=== PATIENT | female | born 2000 | race Caucasian/White ===

== ENCOUNTER → 2024-01-15 10:06 | Outpatient (REF) | payer BC, SELFPAY ==
[2024-01-15 11:28] LABS: % Basophils 0.8 % (0-2); % Eosinophils 2.8 % (0-6); % Immature Granulocytes 0.3 % (0-0.5); % Lymphocytes 18.7 % (20.5-51.1); % Monocytes 7.8 % (1.7-9.3); % Neutrophils 69.6 % (42.2-75.2); Absolute Basophils 0.1 10^3/uL (0-0.2); Absolute Eosinophils 0.2 10^3/uL (0-0.7); Absolute Lymphocytes 1.2 10^3/uL (1.2-3.4); Absolute Monocytes 0.5 10^3/uL (0.1-0.6); Absolute Neutrophils 4.4 10^3/uL (1.4-6.5); Hematocrit 35.7 % (37.0-47.0); Hemoglobin 11.6 g/dL (12.0-16.0); Mean Corp Hgb Conc. 32.5 g/dL (33.0-37.0); Mean Corpuscular Volume 79.9 fL (81.0-99.0); Mean Platelet Volume 9.9 fL (7.4-10.4); Nucleated Red Blood Cells % 0 %; Platelet Count 233 10^3/uL (130-400); Red Blood Cell Count 4.47 10^6/uL (4.20-5.40); Red Cell Dist. Width 14.4 % (11.5-14.5); White Blood Cell Count 6.4 10^3/uL (4.8-10.8)
[2024-01-15 13:39] LABS: ALT (SGPT) 41 U/L (0-35); AST (SGOT) 41 U/L (14-36); Albumin 4.2 g/dl (3.5-5.0); Alkaline Phosphatase 63 U/L (38-126); Blood Urea Nitrogen 12 mg/dl (7-17); Calcium 9.6 mg/dl (8.4-10.2); Carbon Dioxide 25 mmol/L (22-30); Chloride 101 mmol/L (98-107); Glucose 85 mg/dl (70-99); HDL Cholesterol 93 mg/dl; Iron 54 ug/dl (37-170); LDL Cholesterol, Calculated 69 mg/dl; Potassium 4.6 mmol/L (3.5-5.1); Sodium 135 mmol/L (135-145); Total Bilirubin 0.5 mg/dl (0.2-1.3); Total Cholesterol 181 mg/dl (50-199); Total Protein 7.1 g/dl (6.3-8.2); Triglyceride 98 mg/dl (10-149); Very Low Density Lipoprotein 19 mg/dl (0-30); eGFR > 60.00
[2024-01-15 13:49] LABS: Percent Saturation 12 % (20-50); Total Iron Binding Capacity 449 ug/dl (265-497)
[2024-01-15 13:57] LABS: TSH Reflex To Free T4 2.44 uIU/ml (0.47-4.68)
== END ==
LOC: REG 10:06
PROVIDERS: ATTENDING PHYSICIAN Family Medicine
DX: Z00.00 Encounter for general adult medical examination without abnormal findings (principal)
CPT/HCPCS: 36415; 80053; 80061; 82728; 83540; 83550; 84443; 85025

== ENCOUNTER → 2024-03-07 11:19 | Outpatient (REF) | payer BC, SELFPAY | LOC: CPAP 11:19 | PROVIDERS: ATTENDING PHYSICIAN Nurse Practitioner Family | DX: Z12.4 Encounter for screening for malignant neoplasm of cervix (principal); Z01.419 Encounter for gynecological examination (general) (routine) without abnormal findings | CPT/HCPCS: G0123 ==

== ENCOUNTER → 2024-04-12 09:17 | Outpatient (REF) | payer BC, SELFPAY ==
[2024-04-12 10:56] LABS: % Basophils 0.6 % (0-2); % Immature Granulocytes 0.5 % (0-0.5); % Lymphocytes 16.9 % (20.5-51.1); % Monocytes 6.2 % (1.7-9.3); % Neutrophils 74.8 % (42.2-75.2); Absolute Basophils 0.1 10^3/uL (0-0.2); Absolute Eosinophils 0.1 10^3/uL (0-0.7); Absolute Immature Granulocytes 0.1 10^3/uL (0-0.05); Absolute Lymphocytes 1.7 10^3/uL (1.2-3.4); Absolute Monocytes 0.6 10^3/uL (0.1-0.6); Absolute Neutrophils 7.4 10^3/uL (1.4-6.5); Hematocrit 39.3 % (37.0-47.0); Hemoglobin 12.9 g/dL (12.0-16.0); Mean Corp Hgb Conc. 32.8 g/dL (33.0-37.0); Mean Corpuscular Hgb 29.7 pg (27.0-31.0); Mean Corpuscular Volume 90.6 fL (81.0-99.0); Mean Platelet Volume 9.3 fL (7.4-10.4); Nucleated Red Blood Cells % 0 %; Platelet Count 192 10^3/uL (130-400); Red Blood Cell Count 4.34 10^6/uL (4.20-5.40); Red Cell Dist. Width 14.6 % (11.5-14.5); White Blood Cell Count 9.9 10^3/uL (4.8-10.8)
[2024-04-12 11:31] LABS: ALT (SGPT) 20 U/L (0-35); AST (SGOT) 22 U/L (14-36); Albumin 4.5 g/dl (3.5-5.0); Alkaline Phosphatase 58 U/L (38-126); Blood Urea Nitrogen 16 mg/dl (7-17); Calcium 10.1 mg/dl (8.4-10.2); Carbon Dioxide 24 mmol/L (22-30); Chloride 102 mmol/L (98-107); Glucose 88 mg/dl (70-99); Iron 91 ug/dl (37-170); Potassium 4.6 mmol/L (3.5-5.1); Sodium 136 mmol/L (135-145); Total Bilirubin 0.6 mg/dl (0.2-1.3); eGFR > 60.00
[2024-04-12 11:41] LABS: Percent Saturation 23 % (20-50); Total Iron Binding Capacity 393 ug/dl (265-497)
[2024-04-12 12:03] LABS: Ferritin 12.4 ng/ml (6.24-137)
== END ==
LOC: REG 09:17
PROVIDERS: ATTENDING PHYSICIAN Family Medicine
DX: D50.9 Iron deficiency anemia, unspecified (principal); R79.89 Other specified abnormal findings of blood chemistry
CPT/HCPCS: 36415; 80053; 82728; 83540; 83550; 85025

== ENCOUNTER 2024-08-05 09:47 | Inpatient (IN) | payer BC, SELFPAY ==
[2024-08-02 19:30] VITALS: BP 154/96
--- NOTE | 2024-08-02 22:03 | ED.GENMED ---
History of Present Illness
<DO Ambreen Ferreira Last Filed: 08/03/24 15:38>
General
Chief Complaint: Back Pain
Source: patient
Time Seen by Provider: 08/02/24 21:41
History of Present Illness
History of Present Illness:
23-year-old female presents to the emergency room with severe low back pain. Patient states that she began having back pain approximately 6 months ago. No clear injury. She was seen by orthopedics and went through a course of physical therapy.
Her pain did improve. She was feeling somewhat better until 2 weeks ago when her pain began worsened. The pain exists in her low back. She has tingling that radiates down her leg. She has a numbness feeling on the side of her leg. Her movement
is limited by pain but not by weakness. She denies saddle anesthesia. She denies any bowel/bladder incontinence. She denies any fever or chills. She denies any IV drug use.
Phy Exam
<Shayan Correa DO - Last Filed: 08/03/24 15:38>
Physical Exam
Physical Exam:
General: Awake, Alert, Oriented X3. No acute distress.
Vitals: unremarkable
Head: Atraumatic
Eyes: Pupils equal, EOMI
Throat: Airway intact, no exudates
Neck: Trachea midline
Lungs: Clear and equal b/l
Heart: Regular rate, no murmurs
Abd: Soft, Nontender, No pulsatile mass
Back: No midline tenderness to palpation
Neuro: Muscle strength out of 5 bilaterally, patellar reflexes intact bilaterally, decrease left Achilles reflex
Skin: Warm, dry, no rash
Extremities: pulses equal b/l, no edema
Course
<DO Ambreen Ferreira Last Filed: 08/03/24 15:38>
Orders/Labs/Results
Orders:
Orders
08/02/24 21:54
Bladder Scan- Treatment ONCE
Ketorolac [Toradol] 30 mg IV NOW STA
08/02/24 22:01
Test Result ONCE
08/02/24 22:10
Basic Metabolic Panel Urgent
CRP [C-Reactive Protein] Urgent
Complete Blood Count/With Diff Urgent
HCG, Serum Qualitative Screen Urgent
08/02/24 22:33
MR Lumbar Without Contrast Stat
Comment:
Reason For Exam: back pain, urinary retention, left leg paresthesia
OK for patient to be off Cardiac Monitoring for MRI: Yes
Recent pill cam endoscopy?: No
08/03/24 01:35
Dexamethasone Sod Phosphate [Decadron] 10 mg IV NOW STA
Morphine Sulfate 4 mg IV NOW STA
08/03/24 03:15
Admit/Transfer Patient As Directed
Co-Sign Provider:
Level of Care: Observation services
Assign to:: Medical/Surgical
Physician / Group: Nilay
Diagnosis: Lumbar Radiculopathy
Code Status As Directed
Resuscitation Status: Full Code
PRN Pain Medication Management As Directed
May give lesser potent ordered pain med per pt: Yes
preference::
Protocol:: Medication orders for pain may be administered in a
manner that supports deferring to patient preference
when the pt is:
- Requesting an ordered lesser potent pain medication.
Least to most potent pain medications are defined
as: acetaminophen < NSAID < tramadol < opioids
(morphine, oxycodone, hydromorphone).
- Requesting a lesser dose of the same medication IF
ORDERED.
- Requesting a less intrusive route of administration
if both routes are prescribed by the provider (PO <
IV).
08/03/24 Breakfast
Regular
At Your Request: Full Participation
08/03/24 06:09
Acetaminophen [Tylenol] 650 mg PO Q4HPRN PRN
Dexamethasone Sod Phosphate [Decadron] 4 mg IV Q6H
HYDROmorphone [Dilaudid] 0.5 mg IV Q4HPRN PRN
08/03/24 06:09
Neurosurgery Consult Routine
Consulting Provider: Radha June
Was physician already notified: Yes
Reason for Consult: Lumbar Radiculopathy, Urinary retention
Activity As Directed
Activity Level: Ambulate
Bladder Scan As Directed
Follow Bladder Retention/Intermittent Cath Algorithm?: Yes
PRN if no void in __ hours: 6
Frequency: Per Retention Algorithm
If Bladder Scan Result >: 400
then:: Straight cath
I/O [Intake/ Output] As Directed
Frequency: Per unit guidelines
Pneumatic Compression Sleeves As Directed
Type: Knee high
Straight Cath As Directed
Frequency: Per Retention Algorithm
Additional Instructions: straight cath as needed per acute urinary retention algorithm for 24 hrs
Additional Instructions: for bladder scan greater than 400 mL
Vital Signs As Directed
Frequency: Per unit guidelines
PT Consult [Pt Eval And Treat] Routine
Activity Level: Ambulate
With Assistance
DX Deep Vein Thrombosis Video Routine
08/03/24 08:00
Lidocaine [Lidocaine 4% Patch] 1 patch TOPICAL DAILY
Apply Lidocaine patch(s) to:: L buttocks
08/04/24 06:00
Basic Metabolic Panel IN AM
Complete Blood Count/No Diff IN AM
Abnormal Lab Results
08/02/24
22:10
Absolute Neuts (auto) 7.8 H 10^3/uL
(1.4-6.5)
Absolute Lymphs (auto) 0.7 L 10^3/uL
(1.2-3.4)
Neutrophils % 86.3 H %
(42.2-75.2)
Lymphocytes % 8.2 L %
(20.5-51.1)
Carbon Dioxide 20 L mmol/L
(22-30)
Glucose 112 H mg/dl
(70-99)
08/02/24 22:10
08/02/24 22:10
Vital Signs
Initial and Last Documented VS:
Initial Vital Signs
Temp Pulse Resp BP Pulse Ox
98.4 F 94 16 154/96 96
08/02/24 19:30 08/02/24 19:30 08/02/24 19:30 08/02/24 19:30 08/02/24 19:30
Last Documented Vital Signs
Temp Pulse Resp BP Pulse Ox
98.4 F 74 18 116/70 98
08/02/24 19:30 08/03/24 11:00 08/03/24 11:00 08/03/24 11:00 08/03/24 11:00
<Judy Goldsmith DO - Last Filed: 08/03/24 06:44>
Orders/Labs/Results
Orders:
Orders
08/02/24 21:54
Bladder Scan- Treatment ONCE
Ketorolac [Toradol] 30 mg IV NOW STA
08/02/24 22:01
Test Result ONCE
08/02/24 22:10
Basic Metabolic Panel Urgent
CRP [C-Reactive Protein] Urgent
Complete Blood Count/With Diff Urgent
HCG, Serum Qualitative Screen Urgent
08/02/24 22:33
MR Lumbar Without Contrast Stat
Comment:
Reason For Exam: back pain, urinary retention, left leg paresthesia
OK for patient to be off Cardiac Monitoring for MRI: Yes
Recent pill cam endoscopy?: No
08/03/24 01:35
Dexamethasone Sod Phosphate [Decadron] 10 mg IV NOW STA
Morphine Sulfate 4 mg IV NOW STA
08/03/24 03:15
Admit/Transfer Patient As Directed
Co-Sign Provider:
Level of Care: Observation services
Assign to:: Medical/Surgical
Physician / Group: Nilay
Diagnosis: Lumbar Radiculopathy
Code Status As Directed
Resuscitation Status: Full Code
PRN Pain Medication Management As Directed
May give lesser potent ordered pain med per pt: Yes
preference::
Protocol:: Medication orders for pain may be administered in a
manner that supports deferring to patient preference
when the pt is:
- Requesting an ordered lesser potent pain medication.
Least to most potent pain medications are defined
as: acetaminophen < NSAID < tramadol < opioids
(morphine, oxycodone, hydromorphone).
- Requesting a lesser dose of the same medication IF
ORDERED.
- Requesting a less intrusive route of administration
if both routes are prescribed by the provider (PO <
IV).
08/03/24 Breakfast
Regular
At Your Request: Full Participation
08/03/24 06:09
Acetaminophen [Tylenol] 650 mg PO Q4HPRN PRN
Dexamethasone Sod Phosphate [Decadron] 4 mg IV Q6H
HYDROmorphone [Dilaudid] 0.5 mg IV Q4HPRN PRN
08/03/24 06:09
Neurosurgery Consult Routine
Consulting Provider: Radha June
Was physician already notified: Yes
Reason for Consult: Lumbar Radiculopathy, Urinary retention
Activity As Directed
Activity Level: Ambulate
Bladder Scan As Directed
Follow Bladder Retention/Intermittent Cath Algorithm?: Yes
PRN if no void in __ hours: 6
Frequency: Per Retention Algorithm
If Bladder Scan Result >: 400
then:: Straight cath
I/O [Intake/ Output] As Directed
Frequency: Per unit guidelines
Pneumatic Compression Sleeves As Directed
Type: Knee high
Straight Cath As Directed
Frequency: Per Retention Algorithm
Additional Instructions: straight cath as needed per acute urinary retention algorithm for 24 hrs
Additional Instructions: for bladder scan greater than 400 mL
Vital Signs As Directed
Frequency: Per unit guidelines
PT Consult [Pt Eval And Treat] Routine
Activity Level: Ambulate
With Assistance
DX Deep Vein Thrombosis Video Routine
08/03/24 08:00
Lidocaine [Lidocaine 4% Patch] 1 patch TOPICAL DAILY
Apply Lidocaine patch(s) to:: L buttocks
08/04/24 06:00
Basic Metabolic Panel IN AM
Complete Blood Count/No Diff IN AM
Abnormal Lab Results
08/02/24
22:10
Absolute Neuts (auto) 7.8 H 10^3/uL
(1.4-6.5)
Absolute Lymphs (auto) 0.7 L 10^3/uL
(1.2-3.4)
Neutrophils % 86.3 H %
(42.2-75.2)
Lymphocytes % 8.2 L %
(20.5-51.1)
Carbon Dioxide 20 L mmol/L
(22-30)
Glucose 112 H mg/dl
(70-99)
08/02/24 22:10
08/02/24 22:10
Vital Signs
Initial and Last Documented VS:
Initial Vital Signs
Temp Pulse Resp BP Pulse Ox
98.4 F 94 16 154/96 96
08/02/24 19:30 08/02/24 19:30 08/02/24 19:30 08/02/24 19:30 08/02/24 19:30
Last Documented Vital Signs
Temp Pulse Resp BP Pulse Ox
98.4 F 74 18 116/70 98
08/02/24 19:30 08/03/24 11:00 08/03/24 11:00 08/03/24 11:00 08/03/24 11:00
avtar;Shayan Correa, DO - Last Filed: 08/03/24 15:38>
MDM/Problems Addressed
Differential Diagnosis Includes:
Cauda equina, lumbar radiculopathy, muscle spasm
MDM/Problems Addressed:
1036pm: Patient presents with significant low back pain which does radiate to the left leg with paresthesias in the left leg. She has decreased Achilles reflex. Bladder scan was performed which shows quite significant urinary retention of 750 cc.
At this point I communicated with radiology to facilitate a stat MRI. I also communicated with Dr. June who is on-call for neurosurgery just to give her a heads up about the potential of the case.
<Judy Goldsmith DO - Last Filed: 08/03/24 06:44>
*Critical Care Note
Total Time (30-74mins, 75-104mins- exclusive of procedures): Not Applicable
<Judy Goldsmith DO - Last Filed: 08/03/24 06:44>
Update Note
Update Note:
Attending Signout Note
23:45 -received signout from prior physician, 23-year-old female presenting for worsening back pain. Notes lower back pain with paresthesias running down the left leg. In the emergency department, noted to have intact strength to bilateral lower
extremities, slight diminished sensation to the left inner thigh. Patient was bladder scan, significant retention, was unable to urinate so concern for acute urinary retention. Patient had a catheter placed, output of about 1000 cc. For this
reason, concern for cauda equina. Patient is currently in MRI.
01:30 -MRI shows prominent left subarticular disc protrusion at L5-S1 resulting in lateral recess stenosis abutting the nerve roots and likely causing patient's radiculopathy. Discussed with neurosurgery, who was already aware of patient. On my
repeat examination, cranial sensation is overall intact, does note some slight diminished sensation on the left side. Rectal tone is overall intact, however seems slightly diminished on my exam. Patient otherwise continues to have intact strength
and distal sensation. Per neurosurgery, not meeting criteria for acute cauda equina or emergent OR, advising admission for IV steroids and pain control with Leary trial due to acute urinary retention she notes if patient is failing, we will then
operate. Morphine administered for pain.
-Judy Goldsmith DO
ED Attending Note
<Shayan Correa DO - Last Filed: 08/03/24 15:38>
-
Portions of this chart may have been created with voice recognition software.� Occasional wrong word or��sound alike� substitutions may have occurred due to the inherent limitations of voice recognition software.
Discharge Plan
Departure
Patient Disposition: Admit
Date of Disposition: 08/03/24
Time of Disposition: 01:42
Presentation/result/management discussed w/ accepting MD/DO: Hospitalist
Patient with high blood pressure during this ER visit?: No
Condition: Fair
Discharge Problem:
Herniation of intervertebral disc between L5 and S1, Acute urinary retention
Interventions
Interventions:
*Risk Screen - Suicide Last Done: 08/02/24 19:26
*General Assessment Last Done: 08/02/24 21:37
*Neglect/Abuse Screening Last Done: 08/03/24 00:32
ED- Fall Risk Assessment Last Done: 08/02/24 21:37
*ED COVID-19 Vaccine History Last Done: 08/03/24 00:33
*Nursing Disposition Last Done: 08/03/24 15:13
ED-Musculoskeletal Assessment Last Done: 08/02/24 21:37
Discharge Date and Time
Discharge Date/Time: 08/03/24 15:14
[2024-08-02] MEDS: TORADOL 30 MG IV (22:10)
[2024-08-02 22:23] VITALS: BP 152/92
[2024-08-02 22:24] LABS: % Basophils 0.3 % (0-2); % Immature Granulocytes 0.4 % (0-0.5); % Lymphocytes 8.2 % (20.5-51.1); % Monocytes 4.8 % (1.7-9.3); % Neutrophils 86.3 % (42.2-75.2); Absolute Lymphocytes 0.7 10^3/uL (1.2-3.4); Absolute Monocytes 0.4 10^3/uL (0.1-0.6); Absolute Neutrophils 7.8 10^3/uL (1.4-6.5); Hematocrit 37.4 % (37.0-47.0); Hemoglobin 13.6 g/dL (12.0-16.0); Mean Corp Hgb Conc. 36.4 g/dL (33.0-37.0); Mean Corpuscular Hgb 30.8 pg (27.0-31.0); Mean Corpuscular Volume 84.8 fL (81.0-99.0); Mean Platelet Volume 9.3 fL (7.4-10.4); Nucleated Red Blood Cells % 0 %; Platelet Count 206 10^3/uL (130-400); Red Blood Cell Count 4.41 10^6/uL (4.20-5.40); Red Cell Dist. Width 11.8 % (11.5-14.5)
[2024-08-02 22:52] VITALS: BMI 32.3
[2024-08-02 23:04] LABS: HCG, Serum Qualitative Screen Negative
[2024-08-02 23:06] LABS: Blood Urea Nitrogen 9 mg/dl (7-17); Carbon Dioxide 20 mmol/L (22-30); Chloride 102 mmol/L (98-107); Estimated Creatinine Clearance > 125 ml/min; Glucose 112 mg/dl (70-99); Potassium 4.3 mmol/L (3.5-5.1); Sodium 137 mmol/L (135-145); eGFR > 60.00
[2024-08-03 00:30] VITALS: BP 114/88
[2024-08-03] MEDS: DECADRON 10 MG IV (01:41)
[2024-08-03] MEDS: MORPHINE SULFATE 4 MG IV (01:43)
--- NOTE | 2024-08-03 03:17 | HPS.HSE ---
Family Physician
-
Family Physician: Lilliana Howell
Chief Complaint
-
Back Pain / LLE Numbness
History of Present Illness
Patient is a 23y F with no significant PMH who presents to ED complaining of back pain and LLE numbness. Patient states that she initially developed low back pain in February of this year. No obvious inciting incident, injury or trauma. She had
x-rays which were unremarkable and was treated for suspected SI joint dysfunction with pain control and PT. Her symptoms did improve, but did not fully resolve. About 2 weeks ago patient noted a recurrence of her prior pain. She again noted no
specific injury or incident. Her pain was in the L buttock area and describes as a burning discomfort. In addition, she developed new numbness / tingling sensation in the LLE in the lateral thigh and wrapping around the knee to the heel.
She noted significant increase in her symptoms over the past 2 days. She had increased pain with standing / walking.
In the ED this evening, patient was bladder scanned for 800cc. She was unable to void. She was straight cathed for return of 1000cc of urine.
Medical History
Past Medical History
Past Medical History: Reports None
Past Surgical History: Reports None
Social History
Tobacco: Non-smoker
Alcohol: None
Drug: None
Family History
Family History: Not pertinent
Allergies / Home Medications
Allergies reflects when Allergies were last updated in [employer].
Home Medications with original date entered in [employer]
Allergy/Medication List:
OCP
Domi OTC
Review of Systems
-
History Source: Patient
A 12 point ROS was completed and negative except as noted: Yes
Constitutional: Denies Fever, Fatigue or Chills
Respiratory: Denies Cough or Trouble Breathing
Cardiac: Denies Chest Pain or Palpitations
Abdomen/GI: Denies Abdominal Pain, Nausea, Vomiting or Diarrhea
: Reports Difficulty Voiding; Denies Dysuria, Frequency or Flank Pain
Musculoskeletal: Reports Other (L low back / buttock pain. LLE numbness and tingling.); Denies Joint Pain or Edema
Neurological: Reports Numbness; Denies Dizzy or Headache
Psych: Denies Depression or Anxiety
Physical Exam
Vital Signs
Vital Signs
Temp Pulse Resp BP Pulse Ox
98.4 F 87 16 114/88 94
08/02/24 19:30 08/03/24 00:30 08/03/24 00:30 08/03/24 00:30 08/03/24 00:30
Physical Exam
General: Other (23y F in no acute distress.)
HEENT: Moist mucous membranes and PERRLA
Respiratory: Clear; No Wheezes, Rales or Rhonchi
Cardiac: S1/S2 and Regular Rhythm; No Murmur
GI: Soft, Non Tender, Non Distended and Normal Bowel Sounds
Musculoskeletal: No Clubbing, No Cyanosis, No Edema and Other (Pos SLR bilaterally with reported pain in the L low back / buttock with raising either leg. Tenderness over L buttock / piriformis area.)
Neuro: No Motor Deficits
Laboratory Results
-
08/02/24 22:10
08/02/24 22:10
Impression/Plan
-
A/P: Patient is a 23y F with no significant PMH who presents to ED complaining of low back pain and LLE numbness and tingling for about 2 weeks.
Lumbar Radiculopathy
L5-S1 HNP
- Observe overnight for further evaluation and treatment.
- IV steroids recommended by Neurosurgery.
- Follow for clinical improvement.
- PT evaluation.
- Symptom distribution consistent with L5-S1 disc / nerve impingement seen on MRI.
- +/- surgical intervention if no improvement in symptoms with conservative management.
Urinary Retention
- ? etiology. No evidence of cauda equina syndrome, etc seen on MRI.
- Bladder scan protocol and straight cath if needed.
- May require Leary placement if continues to exhibit urinary retention.
DVT Prophylaxis: SCDs
Code Status: Full
[2024-08-03] MEDS: DECADRON 4 MG IV ×3 (06:25→19:54)
[2024-08-03 06:32] VITALS: BP 118/73
--- NOTE | 2024-08-03 06:35 | EDRN ---
Pt attempted to void after bladder scan at this time,scan showed 230mls of urine,pt unsuccessful at this time.
[2024-08-03] MEDS: LIDOCAINE 4% PATCH 1 PATCH TOPICAL (08:22)
[2024-08-03] MEDS: DILAUDID 0.5 MG IV ×3 (08:23→19:59)
[2024-08-03 08:31] VITALS: BP 118/73
[2024-08-03 11:00] VITALS: BP 116/70
--- NOTE | 2024-08-03 14:50 | W.PN.UPDATE ---
Update Note
Progress Note Update
Patient seen and examined after postmidnight admission. No new complaints since admission. Patient mentions that she was bladder scanned for 1000cc but since then has urinated twice. She states she has to 'force it' to urinate. VSS. Pt seen and
examined with nurse Demetra Flores present at bedside. NAD, awake and alert, RRR, normal S1/S2, CTAB, CN2-12 intact. Imaging reviewed, MRI L-spine with Large left posterior disc herniation at L5-S1 with severe narrowing of the left lateral recess
and impingement upon the descending left S1 nerve root. Cont Decadron, Tylenol/Dilaudid PRN. Awaiting official neurosurgical evaluation.
[2024-08-03 15:45] VITALS: BMI 33.3
[2024-08-03 16:33] VITALS: BP 135/85
--- NOTE | 2024-08-03 16:33 | CON.NS ---
Consultation
-
Date/Time Consultation Performed: 16:33; 08/03/2024
Performing Provider: Shaylee
Chief Complaint
History of Present Illness
This is a 23-year-old female, who presents with subacute to acute onset of left lower extremity radicular pain, numbness, and inability to void yesterday. She reports that in February 2024, she injured her back, and was diagnosed with possible left SI
joint dysfunction. She underwent steroid therapy, and physical therapy with some improvement of her symptoms. Approximately 2 weeks ago, she had worsening of symptoms, and 2 days prior, she had severe exacerbation of symptoms, prompting her to
present to the emergency room. She reports that her pain is primarily along her left hip/buttock region, with associated numbness in left lower extremity. She denies any perineal numbness. She denies any bowel incontinence. Yesterday, she had
significant difficulty with urination, and does report that she had 1 dose of oxycodone at approximately noon time yesterday. In the emergency room yesterday, she had bladder scan with 800-1000 mL of urine, and was straight cathed. Since then, she
has been able to void, and PVR has been 5 mL. She has voided twice today. She also had a bowel movement today.
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
Review of Systems
-
10 point review of systems was performed which includes constitutional, ENT, cardiovascular, respiratory, GI, , neurologic, musculoskeletal, hematologic, endocrinologic, and was negative, except for stated in HPI.
Medication and Allergies
Allergies
Allergies
Allergy/AdvReac Type Severity Reaction Status Date / Time
No Known Allergies Allergy Unverified 08/02/24 19:33
Physical Exam
-
Exam:
Awake, alert, no apparent distress.
Cranial 2-12 are grossly intact.
Motor: 5/5 strength in upper extremities in all muscle groups.
5/5 strength bilateral lower extremities in all muscle groups.
Diminished sensation to light touch in left lower extremity diffusely.
Head is normocephalic atraumatic
Neck is supple
Breathing nonlabored
Cardiac: Regular rate and rhythm
Abdomen is soft
Extremities are warm
MRI of lumbar spine:: There is a left paracentral moderate to large L5-S1 disc herniation with rostral extrusion. There is significant impingement of the left lateral recess noted. However, there is patency of the central canal noted without any
obvious evidence of obliteration of CSF signal at this level.
Problems
-
Problem Status Onset Code
Acute urinary retention R33.8
Herniation of intervertebral disc between L5 and S1 M51.27
Assessment / Plan
-
This is a 23-year-old female that presents with left lower extremity radiculopathy, and 1 episode of urinary retention, in the setting of taking oxycodone. I thoroughly reviewed the imaging results, her examination, with her, and her mother. At
the present time, cauda equina syndrome has been ruled out, given that she has been able to void since presentation, she has no evidence of perineal numbness, and she has symmetric and good strength bilaterally in the lower extremities. Given this,
she does not warrant/need emergent surgical intervention.
That being said, I discussed with her management options for left L5-S1 disc herniation with radiculopathy which includes conservative management with steroid treatment/anti-inflammatories, physical therapy, epidural steroid injection, and
ultimately surgery.
She expresses that she would like to trial an epidural steroid injection, before committing to surgery.
Discussed with hospital medicine. Will contact IR to see if she can obtain SHAHEEN prior to discharge.
We will follow-up with the patient in the office in approximately 2 weeks. If her symptoms change or worsen between now and follow-up, she is advised to call the office/come to the emergency room. She expresses understanding of this and is in
agreement with plan.
--- NOTE | 2024-08-03 19:08 | PTCARENOTE ---
Received patient around 1545 via stretcher from ER in stable condition. Mother at bedside. Patient oriented to room. Patient has equal strength in all extremeties, but does c/o numbmness on left lower extremity. Patient did not have the urge to void
but did sit on the toilet around 1800. Voided 300 of cloudy yellow urine. PVR 5 ml.
[2024-08-03 23:26] VITALS: BP 126/79
[2024-08-04] MEDS: DILAUDID 0.5 MG IV ×4 (00:15→23:19)
[2024-08-04] MEDS: DECADRON 4 MG IV ×5 (00:16→23:21)
[2024-08-04 05:28] LABS: Hematocrit 38.2 % (37.0-47.0); Hemoglobin 13.3 g/dL (12.0-16.0); Mean Corp Hgb Conc. 34.8 g/dL (33.0-37.0); Mean Corpuscular Hgb 30.6 pg (27.0-31.0); Mean Platelet Volume 9.1 fL (7.4-10.4); Platelet Count 207 10^3/uL (130-400); Red Blood Cell Count 4.34 10^6/uL (4.20-5.40); White Blood Cell Count 11.4 10^3/uL (4.8-10.8)
[2024-08-04 05:51] LABS: Blood Urea Nitrogen 16 mg/dl (7-17); Calcium 10.2 mg/dl (8.4-10.2); Carbon Dioxide 24 mmol/L (22-30); Chloride 102 mmol/L (98-107); Estimated Creatinine Clearance > 125 ml/min; Glucose 124 mg/dl (70-99); Potassium 4.5 mmol/L (3.5-5.1); Sodium 140 mmol/L (135-145); eGFR > 60.00
[2024-08-04 07:58] VITALS: BP 132/78
[2024-08-04] MEDS: LIDOCAINE 4% PATCH 1 PATCH TOPICAL (08:39)
--- NOTE | 2024-08-04 09:40 | W.PN.HOSP.TC ---
Today's Communication/Plan
-
SHAHEEN tomorrow
Assessment / Plan
Assessment / Plan
Gen: NAD, AAOx3.
Eyes: EOMI, PERRLA, no scleral icterus.
Neck: supple.
CV: RRR, +S1/S2, no m/r/g.
Resp: CTAB, no rales, wheezes, or rhonchi.
Abd: +BS, soft, NT, ND
Skin: No rashes. LLE 5/5 strength, no sensory deficits
Neuro: CN 2-12 intact, non-focal.
Psych: Normal mood and affect.
MRI L-spine: Large left posterior disc herniation at L5-S1 with severe narrowing of the left lateral recess and impingement upon the descending left S1 nerve root.
LLE radiculopathy due to L5-S1 disc herniation:
-see my neurosurgery, discussed with Dr. June on 08/03/24
-cont Decadron/Lidocain, cont Tylenol/Dilaudid PRN
-start neurontin 100mg TID
-case discussed with Dr. Orona on 08/03/24, for SHAHEEN on 08/05/24
FULL/SCDs
Anticipated Discharge: 24 - 48 hours
Subjective/Interval History
-
Date of Service: August 04, 2024
No new complaints.
Objective Data
-
Labs:
Laboratory Results
08/04/24
05:00
WBC 11.4 H
Hgb 13.3
Hct 38.2
Plt Count 207
Sodium 140
Potassium 4.5
Chloride 102
Carbon Dioxide 24
BUN 16
Creatinine 0.8
Glucose 124 H
Calcium 10.2
Vital Signs:
Vital Signs
Temp Pulse Resp BP Pulse Ox
97.9 F 66 16 132/78 96
08/04/24 07:58 08/04/24 07:58 08/04/24 07:58 08/04/24 07:58 08/04/24 07:58
I&O
08/03/24 08/04/24 08/05/24
06:59 06:59 06:59
Intake Total 1160 / 1160
Output Total 600 / 600
Balance 560 / 560
[2024-08-04] MEDS: NEURONTIN 100 MG PO ×3 (10:22→21:26)
--- NOTE | 2024-08-04 12:18 | CM ---
Met with pt and her parents at bedside
Pt reports she lives with her parents in a 2 story home; 1 step to enter, 13 steps to 2nd fl
Independent, active at baseline - working FT, drives
DME - none
SNF/HH - no past hx
Has ride home at discharge
PCP - Lilliana Howell
Pharm - [facility]
Discussed OBS status - given letter
Plan - anticipate home no needs when medically stable
[2024-08-04 15:42] VITALS: BP 112/76
[2024-08-04 23:26] VITALS: BP 122/77
[2024-08-05] MEDS: DECADRON 4 MG IV ×2 (05:57→11:50)
[2024-08-05] MEDS: DILAUDID 0.5 MG IV ×2 (06:27→12:51)
[2024-08-05 07:30] VITALS: BP 125/72
[2024-08-05 07:58] LABS: INR 1.06; PT 13.6 Sec (11.4-14.6)
[2024-08-05] MEDS: LIDOCAINE 4% PATCH 1 PATCH TOPICAL (08:19)
[2024-08-05] MEDS: NEURONTIN 100 MG PO ×2 (08:19→16:17)
--- NOTE | 2024-08-05 10:27 | CM ---
Addendum entered by Kimberli Ryan 08/05/24 16:12:
Received tt from Berenice TIAN that patient LOC changed to inpatient.
Original Note:
Met with patient at bedside.
Discuss CM role.
no needs anticipated.
PLAN: Discharge when stable, no needs
--- NOTE | 2024-08-05 12:26 | W.PN.HOSP.TC ---
Addendum entered and electronically signed by David Perez MD 08/06/24 16:03:
[id number]
Original Note:
Today's Communication/Plan
-
naproxen, tylenol
SHAHEEN today
lidocaine patch
can dc decadron - only has had two days
f/u neurosurg outpatient in 2 weeks
If symptoms change or worsen between now and follow-up, call the office of neurosurgery/come to the emergency room.
Assessment / Plan
Assessment / Plan
Gen: NAD, AAOx3.
Eyes: EOMI, PERRLA, no scleral icterus.
Neck: supple.
CV: RRR, +S1/S2, no m/r/g.
Resp: CTAB, no rales, wheezes, or rhonchi.
Abd: +BS, soft, NT, ND
Skin: No rashes. LLE 5/5 strength, no sensory deficits
Neuro: CN 2-12 intact, non-focal.
Psych: Normal mood and affect.
MRI L-spine: Large left posterior disc herniation at L5-S1 with severe narrowing of the left lateral recess and impingement upon the descending left S1 nerve root.
LLE radiculopathy due to L5-S1 disc herniation:
-see my neurosurgery, discussed with Dr. June on 08/03/24
-Lidocaine, cont Tylenol/naproxen
-Only has had two days of Decadron - can dc after SHAHEEN
- neurontin 100mg TID
- SHAHEEN on 08/05/24
-Follow-up with neurosurgery in 2 weeks;
-If symptoms change or worsen between now and follow-up, call the office of neurosurgery/come to the emergency room.
FULL/SCDs
More than 30 minutes spent in discharge including
Final examination of the patient
Summarizing hospital stay
Instructions for continuing care to all relevant caregivers
Preparation of discharge records, prescriptions, and referral forms
Total time spent (34 in minutes):
Anticipated Discharge: Today
Subjective/Interval History
-
Date of Service: August 05, 2024
Going for SHAHEEN today
Objective Data
-
Labs:
Laboratory Results
08/05/24
07:35
PT 13.6
INR 1.06
Vital Signs:
Vital Signs
Temp Pulse Resp BP Pulse Ox
97.7 F 60 18 125/72 95
08/05/24 07:30 08/05/24 07:30 08/05/24 07:30 08/05/24 07:30 08/05/24 07:30
I&O
08/04/24 08/05/24 08/06/24
06:59 06:59 06:59
Intake Total 1160 / 1160 1800 / 1800
Output Total 600 / 600 2100 / 2100
Balance 560 / 560 -300 / -300
Review of Systems
-
History Source: Patient
All other systems: Not reviewed unless documented
Data Reviewed
-
MRI: Image personally visualized and interpreted
Labs: Labs Reviewed by me
--- NOTE | 2024-08-05 12:29 | W.DS.TRANS ---
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
-
Discharge Instructions:
Discharge Diagnosis/Procedures LLE radiculopathy due to L5-S1 disc herniation
Blood Work cbc in 1 week with pcp
Instructions:
Stand-Alone Forms:
Changes to Home Medications: Yes
Discharge Medications:
DC Medications w/original date entered in [employer]
acetaminophen 325 mg tablet 650 mg (2 x 325 mg) PO Q4HPRN PRN Mild Pain / Temp > 101 #90 tabs 08/05/24
gabapentin 100 mg capsule 100 mg PO TID 30 days #90 caps 08/05/24
lidocaine 4 % topical patch 1 patch topical DAILY #30 ea 08/05/24
naproxen 500 mg tablet 500 mg PO BID PRN Pain #30 tabs 08/05/24
Home Medication Changes
acetaminophen 325 mg tablet 650 mg (2 x 325 mg) PO Q4HPRN PRN Mild Pain / Temp > 101 #90 tabs 08/05/24
gabapentin 100 mg capsule 100 mg PO TID 30 days #90 caps 08/05/24
lidocaine 4 % topical patch 1 patch topical DAILY #30 ea 08/05/24
naproxen 500 mg tablet 500 mg PO BID PRN Pain #30 tabs 08/05/24
Pending Results: No
[2024-08-05 14:14] VITALS: BP 127/89; BP_SYST 92
[2024-08-05 15:18] VITALS: BP 122/88
[2024-08-05 16:22] VITALS: BP 118/84
== END 2024-08-05 17:15 | disposition home or self-care (01) | DRG 552 ==
LOC: 2 SOUTH 09:47
PROVIDERS: Emergency Medicine; Radiology Vascular & Interventional Radiology; ADMITTING PHYSICIAN Hospitalist; ATTENDING PHYSICIAN Internal Medicine; CONSULT PHYSICIAN Neurological Surgery; EMERGENCY PHYSICIAN Student in an Organized Health Care Education/Training Program; FAMILY PHYSICIAN Family Medicine
PROC: 3E0R33Z Introduction of Anti-inflammatory into Spinal Canal, Percutaneous Approach (ICD-10-PCS; 2024-08-05)
DX: M54.16 Radiculopathy, lumbar region (principal); M51.27 Other intervertebral disc displacement, lumbosacral region
CPT/HCPCS: 51701; 51798; 62323; 72148; 80048; 84703; 85025; 85027; 85610; 86140; 96374; 96375; 99285

== ENCOUNTER 2024-09-16 06:06 | Day surgery (SDC) | payer BC, SELFPAY ==
[2024-09-10 14:00] VITALS: BMI 33.3
[2024-09-10 14:42] LABS: Hematocrit 39.3 % (37.0-47.0); Hemoglobin 13.5 g/dL (12.0-16.0); Mean Corp Hgb Conc. 34.4 g/dL (33.0-37.0); Mean Corpuscular Hgb 31.4 pg (27.0-31.0); Mean Corpuscular Volume 91.4 fL (81.0-99.0); Mean Platelet Volume 8.9 fL (7.4-10.4); Platelet Count 192 10^3/uL (130-400); Red Cell Dist. Width 12.5 % (11.5-14.5)
[2024-09-10 14:53] LABS: ALT (SGPT) 19 U/L (0-35); AST (SGOT) 19 U/L (14-36); Albumin 4.5 g/dl (3.5-5.0); Alkaline Phosphatase 55 U/L (38-126); Blood Urea Nitrogen 17 mg/dl (7-17); Calcium 10.2 mg/dl (8.4-10.2); Carbon Dioxide 25 mmol/L (22-30); Chloride 104 mmol/L (98-107); Estimated Creatinine Clearance > 125 ml/min; Glucose 97 mg/dl (70-99); Potassium 4.2 mmol/L (3.5-5.1); Sodium 142 mmol/L (135-145); Total Bilirubin 0.6 mg/dl (0.2-1.3); Total Protein 7.4 g/dl (6.3-8.2); eGFR > 60.00
[2024-09-11 11:43] VITALS: BMI 33.3
[2024-09-16] VITALS (7 sets, daily range): BP systolic 118–128; BP diastolic 67–85; BMI 33.3
[2024-09-16] MEDS: CELEBREX 200 MG PO (07:20)
[2024-09-16] MEDS: TYLENOL 1000 MG PO (07:20)
--- NOTE | 2024-09-16 10:05 | OR.RPT ---
Operative Report
Operative Report
Surgeon: Ray Easton MD
Deputy Building Guard: CODY Haney (Emilia Holt served as educational assistant for this procedure as no suitable resident or fellow was able to be identified)
Preoperative Diagnosis:
Lumbosacral herniated disc disease with radiculopathy
Postoperative Diagnosis:
Same
Procedure:
1. Microdiscectomy left sided, L5-S1
2. Use of microscope for microsurgical technique.
Anesth: GETA
EBL: 25 cc
Specimens: none
Complications: none
Indication or procedure: This patient is a 23 year old female with a longstanding history of radiating left lower extremity pain in the S1 nerve distribution. Her symptoms failed to respond to oral medications, physical therapy, activitiy
modification and epidural steroid injections. Imaging demonstrated right sided lateral stenosis at L5-S1 from facet arthropathy. Patient was offered surgical treatment consisting of microdiscectomy. Patient understood the risks benefits and
alternatives of the procedure and elected to undergo surgery after receving preoperative medical clearance.
Description of procedure: Patient was identified in the holding area. Surgical consent verified and patient marked. She was brought to the OR by anesthesia and surgical services. The patient was administered general anesthesia and intubated
without difficulty. Patient placed prone onto a Ramez table with bony prominences well padded and positioned appropriately. Preoperative fluoroscopy used to jama the L5-S1 interspace. The patient was then prepped and draped and the sterile
field established and surgical timeout performed with all members of the operating room team.
The skin was then incised with a knife, bovie down through the fascia overlying the L5-S1 interspace. Upsizing dilators were placed up to an 18 mm tube which was then secured to the table mount. A c arm image marked the correct level to be
operated on. The microscope was then brought in and used for the remainder of the procedure. The neural tiarra was used to create a laminotomy. A micro angled curette then used to tease the ligamentum flavum from the undersurface of the remaining
lamina The kerrison rongeur was then used to remove the ligamentum flavum and hypertrophied facet capsule of L5-S1. The traversing S1 nerve root was visualized and protected with a penfield 4 instrument and the L5-S1 disc exposed and bipolar
cautery used to create hemostasis. An angle nerve hook and ball tipped hook was used to remove one large and two smaller pieces of herniated nuclear material. The remainder of the disc laterally and medially was palpated with a ball tipped nerve
hook and no other herniatons noted.
The wound was then irrigated with 250 cc of normal saline, 40 mg of Depomedrol placed into the wound along with hemostatic agent. The wound was then closed in a sequential fashion with 0-0, 2-0 Vicryl and 3-0 monocryl for the skin. A dry dressing
applied. The patient was then positioned supine onto a hospital table, extubated without difficulty. Patient demonstrated movement of all 4 extremities and patient taken out of the operating room in a stable condition.
I attest that I was present for and performed all worthy and critical components of the procedure.
[2024-09-16] MEDS: DEMEROL 12.5 MG IV (10:44)
[2024-09-16] MEDS: ROXICODONE 5 MG PO (11:57)
== END 2024-09-16 12:30 | disposition home or self-care (01) ==
LOC: SDS 06:06
PROVIDERS: ATTENDING PHYSICIAN Orthopaedic Surgery; FAMILY PHYSICIAN Family Medicine
PROC: 0SB40ZZ Excision of Lumbosacral Disc, Open Approach (ICD-10-PCS; 2024-09-16)
DX: M51.17 Intervertebral disc disorders with radiculopathy, lumbosacral region (principal)
CPT/HCPCS: 63030; 36415; 72100; 76000; 80053; 85027; 87070; 87147

== ENCOUNTER 2024-10-29 06:31 | Outpatient (RCR) | payer BC, SELFPAY | END 2024-10-29 23:59 | disposition home or self-care (01) | LOC: RPT 06:31 | PROVIDERS: ATTENDING PHYSICIAN Orthopaedic Surgery; FAMILY PHYSICIAN Family Medicine | DX: M51.27 Other intervertebral disc displacement, lumbosacral region (principal); Z98.890 Other specified postprocedural states; Z73.6 Limitation of activities due to disability | CPT/HCPCS: 97110; 97162; 97530 ==

== ENCOUNTER 2024-11-25 08:55 | Outpatient (RCR) | payer BC, SELFPAY | END 2024-11-25 23:59 | disposition home or self-care (01) | LOC: RPT 08:55 | PROVIDERS: ATTENDING PHYSICIAN Orthopaedic Surgery; FAMILY PHYSICIAN Family Medicine | DX: M51.27 Other intervertebral disc displacement, lumbosacral region (principal); Z47.89 Encounter for other orthopedic aftercare (principal); Z73.6 Limitation of activities due to disability; M62.81 Muscle weakness (generalized); Z98.890 Other specified postprocedural states | CPT/HCPCS: 97110; 97140; 97530 ==

== ENCOUNTER 2024-12-23 11:20 | Outpatient (RCR) | payer BC, SELFPAY | END 2024-12-24 10:03 | disposition home or self-care (01) | LOC: RPT 11:20 | PROVIDERS: ATTENDING PHYSICIAN Orthopaedic Surgery; FAMILY PHYSICIAN Family Medicine | DX: M51.27 Other intervertebral disc displacement, lumbosacral region (principal); R26.81 Unsteadiness on feet (principal); M62.81 Muscle weakness (generalized); Z98.890 Other specified postprocedural states; M79.605 Pain in left leg; Z73.6 Limitation of activities due to disability | CPT/HCPCS: 97110; 97530 ==

== ENCOUNTER → 2025-02-03 11:00 | Outpatient (REF) | payer BC, SELFPAY ==
[2025-02-03 16:18] LABS: ALT (SGPT) 19 U/L (0-35); AST (SGOT) 23 U/L (14-36); Albumin 4.7 g/dl (3.5-5.0); Alkaline Phosphatase 54 U/L (38-126); Blood Urea Nitrogen 14 mg/dl (7-17); Calcium 10.1 mg/dl (8.4-10.2); Carbon Dioxide 24 mmol/L (22-30); Chloride 103 mmol/L (98-107); Glucose 98 mg/dl (70-99); HDL Cholesterol 85 mg/dl; Iron 76 ug/dl (37-170); LDL Cholesterol, Calculated 107 mg/dl; Potassium 4.3 mmol/L (3.5-5.1); Sodium 138 mmol/L (135-145); Total Bilirubin 0.6 mg/dl (0.2-1.3); Total Cholesterol 213 mg/dl (50-199); Total Protein 7.4 g/dl (6.3-8.2); Triglyceride 105 mg/dl (10-149); Very Low Density Lipoprotein 21 mg/dl (0-30); eGFR > 60.00
[2025-02-03 16:21] LABS: % Basophils 0.7 % (0-2); % Eosinophils 1.7 % (0-6); % Immature Granulocytes 0.3 % (0-0.5); % Lymphocytes 21.6 % (20.5-51.1); % Monocytes 7.1 % (1.7-9.3); % Neutrophils 68.6 % (42.2-75.2); Absolute Basophils 0.1 10^3/uL (0-0.2); Absolute Eosinophils 0.1 10^3/uL (0-0.7); Absolute Lymphocytes 1.5 10^3/uL (1.2-3.4); Absolute Monocytes 0.5 10^3/uL (0.1-0.6); Absolute Neutrophils 4.8 10^3/uL (1.4-6.5); Hemoglobin 12.7 g/dL (12.0-16.0); Mean Corp Hgb Conc. 33.4 g/dL (33.0-37.0); Mean Corpuscular Hgb 29.7 pg (27.0-31.0); Mean Corpuscular Volume 88.8 fL (81.0-99.0); Nucleated Red Blood Cells % 0 %; Platelet Count 220 10^3/uL (130-400); Red Blood Cell Count 4.28 10^6/uL (4.20-5.40); Red Cell Dist. Width 12.2 % (11.5-14.5); White Blood Cell Count 6.9 10^3/uL (4.8-10.8)
[2025-02-03 16:27] LABS: Percent Saturation 16 % (20-50); Total Iron Binding Capacity 461 ug/dl (265-497)
[2025-02-03 16:47] LABS: TSH Reflex To Free T4 6.45 uIU/ml (0.47-4.68)
[2025-02-03 17:14] LABS: Free T4 0.88 ng/dl (0.78-2.19)
[2025-02-03 17:39] LABS: Ferritin 6.9 ng/ml (6.24-137)
== END ==
LOC: HWLAB 11:00
PROVIDERS: ATTENDING PHYSICIAN Family Medicine
DX: D50.9 Iron deficiency anemia, unspecified (principal); R79.89 Other specified abnormal findings of blood chemistry
CPT/HCPCS: 36415; 80053; 80061; 82728; 83540; 83550; 84439; 84443; 85025

== ENCOUNTER → 2025-04-11 10:12 | Outpatient (REF) | payer BC, SELFPAY | LOC: RAD 10:12 | PROVIDERS: ATTENDING PHYSICIAN Physical Medicine & Rehabilitation; FAMILY PHYSICIAN Family Medicine | DX: I82.492 Acute embolism and thrombosis of other specified deep vein of left lower extremity (principal) | CPT/HCPCS: 93971 ==

== ENCOUNTER → 2025-04-26 06:32 | Outpatient (REF) | payer BC, SELFPAY | LOC: MRI 3T 06:32 | PROVIDERS: ATTENDING PHYSICIAN Physical Medicine & Rehabilitation; FAMILY PHYSICIAN Family Medicine | DX: S86.112A Strain of other muscle(s) and tendon(s) of posterior muscle group at lower leg level, left leg, initial encounter (principal) | CPT/HCPCS: 73718 ==

== ENCOUNTER → 2025-07-07 10:49 | Outpatient (REF) | payer BC, SELFPAY | LOC: EMG 10:49 | PROVIDERS: ATTENDING PHYSICIAN Orthopaedic Surgery; FAMILY PHYSICIAN Family Medicine | DX: M54.16 Radiculopathy, lumbar region (principal); R20.0 Anesthesia of skin | CPT/HCPCS: 95886; 95909 ==

== ENCOUNTER → 2025-07-17 11:14 | Outpatient (REF) | payer BC, SELFPAY | LOC: MRI 3T 11:14 | PROVIDERS: ATTENDING PHYSICIAN Orthopaedic Surgery; FAMILY PHYSICIAN Family Medicine | DX: M54.16 Radiculopathy, lumbar region (principal) | CPT/HCPCS: 72148 ==